=== PATIENT | female | born 1945 | race Caucasian/White ===

== ENCOUNTER 2019-08-31 10:19 | Outpatient (CLI) | payer MEDICARE, SELFPAY ==
[2019-08-31 12:58] LABS: Anion Gap 12.3 mmol/L (3-11); BUN 19 mg/dL (7-18); CO2 24.7 mmol/L (21.0-32.0); CREATININE 0.68 mg/dL (0.55-1.02); Calcium 9.3 mg/dL (8.5-10.1); Chloride 97 mmol/L (98-107); Glucose 109 mg/dL (74-106); Potassium 4.3 mmol/L (3.5-5.1); Sodium 134 mmol/L (136-145)
[2019-08-31 13:43] LABS: Abs Immature Grans 0.03 k/cumm (0.0-0.09); Absolute Eosinophil Count 0.11 k/cumm (0.0-0.7); Absolute Lymphocyte Count 1.52 k/cumm (1.2-3.4); Absolute Monocyte Count 0.86 k/cumm (0.11-0.7); Basophils % 0.2; Eosinophils % 0.9; HCT 41.3 % (36.0-46.0); HGB 13.6 g/dL (12.0-15.5); Immature Grans % 0.2 %; Lymphocytes % 12.6; Mean Corp. HGB Concentration 32.9 g/dL (32.0-36.0); Mean Corpuscular Hemoglobin 29.6 pg (27.0-33.0); Mean Corpuscular Volume 89.8 fL (80-95); Mean Platelet Volume 10.8 fL (8.0-11.0); Monocytes % 7.1; Platelet Count 350 x1000/uL (130-400); RBC Distribution Width 12.7 % (11.7-14.6)
[2019-08-31 13:59] LABS: Absolute Basophil Count 0.02 k/cumm (0.0-0.2); Absolute Neutrophil Count 9.56 k/cumm (1.2-6.7)
[2019-08-31 14:00] LABS: Hemoglobin A1C 6.9 % (3.8-5.6)
== END 2019-08-31 10:39 ==
PROVIDERS: PCP Nurse Practitioner Acute Care; Visit Provider Nurse Practitioner Adult Health
DX: E11.9 Type 2 diabetes mellitus without complications (principal); E78.5 Hyperlipidemia, unspecified; I70.213 Atherosclerosis of native arteries of extremities with intermittent claudication, bilateral legs; I73.9 Peripheral vascular disease, unspecified; Z79.01 Long term (current) use of anticoagulants
CPT/HCPCS: 36415; 80048; 83036; 85025

== ENCOUNTER 2019-10-26 16:10 | Outpatient (REF) | payer MEDICARE, MEDICAID, SELFPAY ==
[2019-10-27 13:27] LABS: COVID-19 RT-PCR UVMMC Result Negative (Negative)
== END 2019-10-26 16:30 ==
LOC: LBN 16:10
PROVIDERS: PCP Nurse Practitioner Acute Care; Visit Provider Nurse Practitioner Adult Health
DX: Z20.828 Contact with and (suspected) exposure to other viral communicable diseases (principal)
CPT/HCPCS: U0003

== ENCOUNTER 2020-01-27 22:20 | Outpatient (REF) | payer MEDICARE, MEDICAID, SELFPAY ==
[2020-01-27 16:43] LABS: Bilirubin Negative (Negative); Blood Trace-intact (Negative); Clarity Cloudy (Clear); Glucose 500 mg/dL (Negative); Ketones Negative (Negative); Leukocyte Esterase Small (Negative); Nitrite Positive (Negative); Specific Gravity 1.015 (1.005-1.025); Urobilinogen 0.2 EU/dL (Up TO 0.2); pH 5.5 (5-8)
[2020-01-27 16:45] LABS: C & S Indicated? C&S Done As Ordered
[2020-01-27 16:50] LABS: WBC >50 HPF (0-5)
[2020-01-27 16:51] LABS: Bacteria Many HPF (Negative); Casts Negative LPF (Negative); Crystals Negative HPF (Negative); Epithelial Cells Many HPF (Negative); Mucus Negative (Negative)
== END 2020-01-27 22:40 ==
LOC: LBN 22:20
PROVIDERS: PCP Nurse Practitioner Acute Care; Visit Provider Family Medicine
DX: R82.998 Other abnormal findings in urine (principal); R41.0 Disorientation, unspecified
CPT/HCPCS: 87077; 81003; 81015; 87086; 87186

== ENCOUNTER 2020-01-28 04:43 | Emergency (ER) | payer MEDICARE, MEDICAID, SELFPAY ==
--- NOTE | 2020-01-28 04:44 | W.ED.GENAD ---
Discharge Plan Disposition Patient Disposition: SNF (LEVEL 1) [facility] Condition: Good Discharge Details Chief Complaint: HeadInjury Clinical Impression: Head injury, closed, without LOC, Fall at correction Primary Care Provider: Tanner Zhu ED Provider: [place] Meds and New Rx's Prescriptions: Continued atorvastatin 40 mg Tablet 40 mg PO DAILY RF: 0 acetaminophen 325 mg Tablet 650 mg PO Q4H PRN PRNRF: 0 trazodone 50 mg Tablet 50 mg PO DAILY RF: 0 naltrexone 50 mg Tablet 50 mg PO DAILY RF: 0 triamcinolone acetonide 0.1 % Cream 1 applic TOPICAL BID RF: 0 magnesium hydroxide [Milk of Magnesia] 400 mg/5 mL Suspension 30 ml PO HS PRNRF: 0 bisacodyl [Dulcolax (bisacodyl)] 10 mg Suppository 10 mg VT DAILY PRNRF: 0 metformin 1,000 mg Tablet 2,000 mg PO DAILY RF: 0 Fleet Enema 19-7 gram/118 mL Enema 118 ml VT DAILY PRNRF: 0 levothyroxine [Synthroid] 200 mcg Tablet 200 mcg PO DAILY RF: 0 nystatin 100,000 unit/gram Powder 1 applic TOPICAL BID RF: 0 losartan 100 mg Tablet 100 mg PO DAILY RF: 0 Jardiance 25 mg Tablet 25 mg PO DAILY RF: 0 vitamin B complex Tablet 1 tab PO DAILY RF: 0 albuterol sulfate [Ventolin HFA] 90 mcg/actuation Hfa Aerosol Inhaler 2 puff INHALATION Q4H PRN PRNRF: 0 solifenacin [Vesicare] 5 mg Tablet 10 mg PO DAILY RF: 0 cholecalciferol (vitamin D3) [Vitamin D3] 50 mcg (2,000 unit) Tablet 2,000 unit PO DAILY RF: 0 Xarelto 20 mg Tablet 20 mg PO DAILY RF: 0 Discharge Instructions Additional Instructions: CT scan of head and cervical spine negative for traumatic injury. Resume previous medical care. Return to ED for mental status changes, worsening severe headache, persistent vomiting, neurologic changes. Medical Decision Making Patient here status post fall striking head on toilet. Neurologically intact. Minimal midline posterior neck tenderness. No obvious deformities or tenderness involving extremities. Will obtain head and cervical spine CT scan. No further imaging or laboratory studies indicated at this time. 06:00 - Head in cervical spine CT scan negative acute traumatic injury. Patient to be returned to [facility] to resume previous medical care. HPI General Mode of arrival: EMS. Date/Time Provider Initiated Documentation: 01/28/20 04:44. Limitations to Documentation: no limitations. Information obtained by: patient, EMS, RN notes reviewed and old records reviewed. HPI Narrative: Patient transferred over from ECF for evaluation after fall. Patient was trying to transfer from wheelchair to toilet. She slipped and struck her head on the toilet. She is on Xarelto. She had no loss of consciousness. She does complain of some head and neck pain. No neurologic changes. No nausea vomiting. No new extremity pain or discomfort other than baseline. No back pain. Related Data Home Medications Medication Instructions Recorded Confirmed Fleet Enema 118 ml VT DAILY PRN 01/28/20 01/28/20 Jardiance 25 mg PO DAILY 01/28/20 01/28/20 Xarelto 20 mg PO DAILY 01/28/20 01/28/20 acetaminophen 650 mg PO Q4H PRN PRN 01/28/20 01/28/20 albuterol sulfate [Ventolin HFA] 2 puff INHALATION Q4H PRN PRN 01/28/20 01/28/20 atorvastatin 40 mg PO DAILY 01/28/20 01/28/20 bisacodyl [Dulcolax (bisacodyl)] 10 mg VT DAILY PRN 01/28/20 01/28/20 cholecalciferol (vitamin D3) 2,000 unit PO DAILY 01/28/20 01/28/20 [Vitamin D3] levothyroxine [Synthroid] 200 mcg PO DAILY 01/28/20 01/28/20 losartan 100 mg PO DAILY 01/28/20 01/28/20 magnesium hydroxide [Milk of 30 ml PO HS PRN 01/28/20 01/28/20 Magnesia] metformin 2,000 mg PO DAILY 01/28/20 01/28/20 naltrexone 50 mg PO DAILY 01/28/20 01/28/20 nystatin 1 applic TOPICAL BID 01/28/20 01/28/20 solifenacin [Vesicare] 10 mg PO DAILY 01/28/20 01/28/20 trazodone 50 mg PO DAILY 01/28/20 01/28/20 triamcinolone acetonide 1 applic TOPICAL BID 01/28/20 01/28/20 vitamin B complex 1 tab PO DAILY 01/28/20 01/28/20 Allergies Allergy/AdvReac Type Severity Reaction Status Date / Time MACHELLE Inhibitors Allergy Unverified 01/28/20 04:54 levothyroxine Allergy Unverified 01/28/20 04:54 lisinopril Allergy Unverified 01/28/20 04:54 Review of Systems Narrative: As documented in HPI otherwise negative as below. Const: no fever, chills, weakness Resp: no cough, SOB, pleuritic pain CV: no CP, diaphoresis, edema, syncope GI: no abdominal pain, nausea, vomiting, diarrhea Neuro: no numbness, focal weakness, confusion PFSH Medical History Asthma (Chronic) Bipolar disorder (Chronic) CHF (congestive heart failure) (Chronic) Diabetes mellitus (Chronic) DVT (deep venous thrombosis) (Chronic) HTN (hypertension) (Chronic) Hypercholesterolemia (Chronic) Hypothyroid (Chronic) PVD (peripheral vascular disease) (Chronic) Social History Smoking/Tobacco Use Status: Never Alcohol Intake: former Drug use: Never Do you feel safe at home: Yes Do you feel safe in your relationship?: Yes Exam Narrative Exam Narrative: Vitals: Afebrile. Elevated systolic pressure otherwise normal vitals and normal room air pulse ox. Const: Obese, elderly female in NAD. HEENT: NC/AT. Normal facial exam. No lacerations or abrasions. Neck: Minimal midline tenderness. Lungs: Normal respiratory effort. No chest wall tenderness. Cor: RRR with good radial pulses. GI: Soft. NT/ND. No guarding or rebound. Neuro: A+O x 3. Normal speech, mentation. Cranial nerves II - XII grossly intact. No gross motor or sensory deficit. Ext: No deformity or tenderness. Contractures of lower extremities and unable to get legs extended.
[2020-01-28 04:45] VITALS: BP 154/73; PULSE 82; RESP 20; TEMP 37.1; O2SAT 100
--- NOTE | 2020-01-28 05:11 | DI.CT_ITS ---
EXAM: CT HEAD CERVICAL SPINE WO CLINICAL HISTORY: fall/trauma. TECHNIQUE: Imaging Protocol: Axial computed tomography images with coronal and sagittal reformatted images were created and reviewed COMPARISON: No exams were available for comparison FINDINGS: CT Head: Ventricles and Extra axial spaces: Normal in size and morphology for the patient's age. Hemorrhage: None. Cerebral parenchyma: There are areas of decreased attenuation in the white matter most consistent wit h chronic microvascular ischemic disease. Midline shift: None. Brainstem/Cerebellum: Normal. Calvarium: Normal. Visualized Paranasal sinuses/Mastoids: Chronic maxillary sinusitis. The remaining visualized paranas al sinuses are clear. The mastoid air cells are well pneumatized. Soft Tissues: Unremarkable. CT Cervical Spine: Bones: No acute fracture or subluxation. There is a chronic left convex scoliosis and reversal of the normal cervical lordosis. Multilevel degenerative changes are seen throughout the cervical spine re sulting in multilevel neural foraminal narrowing and central spinal canal stenosis. Soft Tissues: Unremarkable. Lung Apices: Chronic apical changes. No acute abnormality. IMPRESSION: 1. No acute intracranial process. 2. No acute fracture or subluxation in the cervical spine. RADIATION DOSE DELIVERED: 1,727.86mGy.cm Total DLP DATA REPOSITORY: All CT scans at this facility are submitted to the National Radiology Data Registry (NRDR) Dose Index Registry (DIR) with the [employer] (ACR). RADIATION OPTIMIZATION: All CT scans at this facility use at least one of these dose optimization te chniques: automated exposure control; mA and/or kV adjustment per patient size (includes targeted exa ms where dose is matched to clinical indication); or iterative reconstruction.
--- NOTE | 2020-01-28 05:56 | DI.VRAD_ITS ---
PROCEDURE INFORMATION: Exam: CT Head Without Contrast Exam date and time: 01/28/2020 4:52 AM Age: 74 years old Clinical indication: Injury or trauma; Fall; Initial encounter; Blunt trauma (contusions or hematomas); Without loss of consciousness; Injury date: 01/28/20; Injury details: PT fell at home transferring from bed. PT states her neck and head are always tilted to the left, unable to straighten it out. Pain on left frontal aspect of the forehead TECHNIQUE: Imaging protocol: Computed tomography of the head without contrast. Radiation optimization: All CT scans at this facility use at least one of these dose optimization techniques: automated exposure control; mA and/or kV adjustment per patient size (includes targeted exams where dose is matched to clinical indication); or iterative reconstruction. COMPARISON: No relevant prior studies available. FINDINGS: Brain: Decreased periventricular and subcortical attenuation compatible with mild chronic white matter ischemic change. No acute cerebrovascular accident. No acute intracranial hemorrhage. Remote lacunar infarct right thalamus. Ventricles: Prominent ventricles and sulci compatible with mild volume loss/atrophy. Bones/joints: No linear or depressed skull fractures. Sinuses: Chronic maxillary sinus disease, right greater than left. No acute sinusitis. Mastoid air cells: Mastoid air cells are unremarkable as demonstrated. Vasculature: Atherosclerotic calcification intracranial vasculature without aneurysm. Soft tissues: Minimal frontal soft tissue swelling/edema. No significant scalp hematoma. IMPRESSION: 1. No acute intracranial abnormalities. 2. Atrophy with chronic ischemic changes as described. PROCEDURE INFORMATION: Exam: CT Cervical Spine Without Contrast Exam date and time: 01/28/2020 4:52 AM Age: 74 years old Clinical indication: Injury or trauma; Fall; Initial encounter; Blunt trauma (contusions or hematomas); Without loss of consciousness; Injury date: 01/28/20; Injury details: PT fell at home transferring from bed. PT states her neck and head are always tilted to the left, unable to straighten it out. Pain on left frontal aspect of the forehead TECHNIQUE: Imaging protocol: Computed tomography images of the cervical spine without contrast. Radiation optimization: All CT scans at this facility use at least one of these dose optimization techniques: automated exposure control; mA and/or kV adjustment per patient size (includes targeted exams where dose is matched to clinical indication); or iterative reconstruction. COMPARISON: No relevant prior studies available. FINDINGS: Vertebrae: No acute fracture or posttraumatic subluxation. Levoconvex curvature with reversal of normal cervical lordosis, likely longstanding and degenerative. Arthritic change articulation anterior arch of C1 and dens of C2 without significant central stenosis. No basilar invagination. Generalized osteopenia. C2-C3: Disc degeneration with disc bulging. No central stenosis. Hypertrophic facets with right neural foraminal narrowing. Minimal degenerative anterolisthesis. C3-C4: Advanced disc degeneration with disc osteophyte complex. Minor central stenosis. Hypertrophic facets with neural foraminal narrowing, right greater than left. C4-C5: Disc degeneration with disc bulging. No central stenosis. Hypertrophic facets with right neural foraminal narrowing. Minimal degenerative anterolisthesis. C5-C6: Advanced disc degeneration with disc osteophyte complex causing [id number] stenosis. Hypertrophic facets with bilateral neural foraminal narrowing. C6-C7: Advanced disc degeneration with disc osteophyte complex with mild central stenosis. No significant neural foraminal narrowing. C7-T1: Disc degeneration with no significant central stenosis. Hypertrophic facets with mild neural foraminal narrowing. Degenerative anterolisthesis. Soft tissues: Unremarkable. Vasculature: Carotid artery calcifications and tortuosity. Lungs: Chronic apical pleural and parenchymal changes IMPRESSION: 1. No acute fracture or posttraumatic subluxation. 2. Advanced degenerative and postural changes as described. Dictated and Authenticated by: Rhys Gracia MD. Ordering:BEENA Delarosa MD
[2020-01-28 06:21] VITALS: BP 135/72; PULSE 85; RESP 20; O2SAT 96
== END 2020-01-28 06:36 | disposition skilled nursing facility (03) ==
PROVIDERS: Emergency Provider Emergency Medicine; PCP Nurse Practitioner Acute Care
DX: S09.90XA Unspecified injury of head, initial encounter (principal); W18.11XA Fall from or off toilet without subsequent striking against object, initial encounter; Y92.121 Bathroom in nursing home as the place of occurrence of the external cause; Z79.01 Long term (current) use of anticoagulants; Z86.718 Personal history of other venous thrombosis and embolism; E11.9 Type 2 diabetes mellitus without complications; I10 Essential (primary) hypertension
CPT/HCPCS: 99284; 70450; 72125

== ENCOUNTER 2020-02-04 11:55 | Outpatient (REF) | payer MEDICAID, SELFPAY ==
[2020-02-05 15:36] LABS: COVID-19 RT-PCR Result Not Detected ((See Note))
== END 2020-02-04 12:15 ==
LOC: LBN 11:55
PROVIDERS: PCP Nurse Practitioner Acute Care; Visit Provider Nurse Practitioner Adult Health
DX: Z11.59 Encounter for screening for other viral diseases (principal)
CPT/HCPCS: U0003

== ENCOUNTER 2020-02-10 10:07 | Outpatient (REF) | payer SELFPAY ==
[2020-02-11 17:37] LABS: COVID-19 RT-PCR Result Not Detected ((See Note))
== END 2020-02-10 10:27 ==
LOC: LBN 10:07
PROVIDERS: PCP Nurse Practitioner Acute Care; Visit Provider Nurse Practitioner Adult Health
DX: Z11.59 Encounter for screening for other viral diseases (principal)
CPT/HCPCS: U0003

== ENCOUNTER 2020-03-14 20:12 | Outpatient (REF) | payer MEDICAID, SELFPAY ==
[2020-03-14 20:19] LABS: Abs Immature Grans 0.03 10^3/uL (0.0-0.06); Absolute Basophil Count 0.05 10^3/uL (0.0-0.2); Absolute Eosinophil Count 0.23 10^3/uL (0.0-0.7); Absolute Monocyte Count 0.99 10^3/uL (0.1-0.8); Absolute Neutrophil Count 8.67 10^3/uL (1.2-6.7); Basophils % 0.4; Eosinophils % 1.9; HCT 40.5 % (36.0-46.0); HGB 13.1 g/dL (11.2-15.7); Immature Grans % 0.3; Lymphocytes % 16.7; MCH 28.8 pg (27.0-33.0); MCHC 32.3 % (32.0-36.0); MPV 9.8 fL (8.0-11.0); Monocytes % 8.3; Neutrophils % 72.4; Nucleated RBC 0 %; Platelet Count 314 10^3/uL (130-400); RBC 4.55 10^6/uL (3.93-5.22); RDW 12.5 % (11.7-14.6); RDW-SD 40.4 fL; WBC 11.97 10^3/uL (4.4-10.8)
[2020-03-14 20:37] LABS: ALT 24 U/L (14-59); AST 10 U/L (15-37); Albumin 3.6 g/dL (3.4-5.0); Alkaline Phosphatase 107 U/L (46-116); Anion Gap 6.5 mmol/L (3-11); BUN 11 mg/dL (7-18); Bilirubin, Total 0.4 mg/dL (0.2-1.0); CO2 29.5 mmol/L (21.0-32.0); CREATININE 0.68 mg/dL (0.55-1.02); Calcium 9.4 mg/dL (8.5-10.1); Chloride 96 mmol/L (98-107); Glucose 96 mg/dL (74-106); Potassium 4.8 mmol/L (3.5-5.1); Sodium 132 mmol/L (136-145); TSH 0.01 uIU/mL (0.36-3.74)
== END 2020-03-14 20:32 ==
LOC: LBN 20:12
PROVIDERS: PCP Nurse Practitioner Acute Care; Visit Provider Nurse Practitioner Adult Health
DX: E11.9 Type 2 diabetes mellitus without complications (principal); E03.9 Hypothyroidism, unspecified; E78.5 Hyperlipidemia, unspecified; M62.81 Muscle weakness (generalized)
CPT/HCPCS: 80053; 83036; 84443; 85025

== ENCOUNTER 2020-04-12 10:29 | Outpatient (REF) | payer MEDICAID, SELFPAY ==
[2020-04-12 11:36] LABS: ALT 21 U/L (14-59); AST 18 U/L (15-37); Albumin 3.6 g/dL (3.4-5.0); Alkaline Phosphatase 114 U/L (46-116); Anion Gap 8.6 mmol/L (3-11); BUN 11 mg/dL (7-18); Bilirubin, Total 0.5 mg/dL (0.2-1.0); CO2 25.4 mmol/L (21.0-32.0); CREATININE 0.69 mg/dL (0.55-1.02); Calcium 9.4 mg/dL (8.5-10.1); Chloride 96 mmol/L (98-107); Glucose 145 mg/dL (74-106); Potassium 4.5 mmol/L (3.5-5.1); Sodium 130 mmol/L (136-145); TSH 0.86 uIU/mL (0.36-3.74); Total Protein 7.1 g/dL (6.4-8.2)
== END 2020-04-12 10:49 ==
LOC: LBN 10:29
PROVIDERS: PCP Nurse Practitioner Acute Care; Visit Provider Nurse Practitioner Adult Health
DX: M62.81 Muscle weakness (generalized) (principal); E78.5 Hyperlipidemia, unspecified
CPT/HCPCS: 80053; 84443

== ENCOUNTER 2020-05-30 20:10 | Outpatient (REF) | payer MEDICAID, SELFPAY | END 2020-05-30 20:30 | LOC: LBN 20:10 | PROVIDERS: PCP Nurse Practitioner Acute Care; Visit Provider Nurse Practitioner Adult Health | DX: N39.0 Urinary tract infection, site not specified (principal) | CPT/HCPCS: 87077; 87086; 87186 ==

== ENCOUNTER 2020-05-31 11:27 | Outpatient (REF) | payer MEDICAID, SELFPAY ==
[2020-05-31 12:30] LABS: Bilirubin Negative (Negative); Blood Small (Negative); Clarity Cloudy (Clear); Glucose 500 mg/dL (Negative); Ketones Negative (Negative); Leukocyte Esterase Moderate (Negative); Nitrite Positive (Negative); Specific Gravity 1.025 (1.005-1.025); Urobilinogen 0.2 EU/dL (Up TO 0.2); pH 5.5 (5-8)
[2020-05-31 12:38] LABS: WBC >50 HPF (0-5)
[2020-05-31 12:39] LABS: Epithelial Cells Many HPF (Negative)
[2020-05-31 12:40] LABS: Bacteria Packed HPF (Negative); C & S Indicated? No/Sq. Contamination
== END 2020-05-31 11:47 ==
LOC: LBN 11:27
PROVIDERS: PCP Nurse Practitioner Acute Care; Visit Provider Family Medicine
DX: N39.0 Urinary tract infection, site not specified (principal)
CPT/HCPCS: 81003; 81015

== ENCOUNTER 2020-06-22 17:34 | Outpatient (REF) | payer MEDICAID, MEDICARE, SELFPAY ==
[2020-06-22 18:27] LABS: HCT 40.2 % (36.0-46.0); HGB 13.2 g/dL (11.2-15.7); MCH 30.1 pg (27.0-33.0); MCHC 32.8 % (32.0-36.0); MCV 91.8 fL (80-95); MPV 10.1 fL (8.0-11.0); Platelet Count 298 10^3/uL (130-400); RBC 4.38 10^6/uL (3.93-5.22); RDW 13.2 % (11.7-14.6); RDW-SD 44.7 fL; WBC 12.37 10^3/uL (4.4-10.8)
[2020-06-22 18:51] LABS: ALT 29 U/L (14-59); AST 18 U/L (15-37); Albumin 3.9 g/dL (3.4-5.0); Alkaline Phosphatase 101 U/L (46-116); Anion Gap 9.2 mmol/L (3-11); BUN 23 mg/dL (7-18); Bilirubin, Total 0.4 mg/dL (0.2-1.0); CO2 26.8 mmol/L (21.0-32.0); CREATININE 0.77 mg/dL (0.55-1.02); Calcium 9.4 mg/dL (8.5-10.1); Chloride 98 mmol/L (98-107); Glucose 110 mg/dL (74-106); Potassium 4.6 mmol/L (3.5-5.1); Sodium 134 mmol/L (136-145); TSH 2.59 uIU/mL (0.36-3.74); Total Protein 7.1 g/dL (6.4-8.2)
== END 2020-06-22 17:54 ==
LOC: LBN 17:34
PROVIDERS: PCP Nurse Practitioner Acute Care; Visit Provider Nurse Practitioner Adult Health
DX: E11.9 Type 2 diabetes mellitus without complications (principal); E03.9 Hypothyroidism, unspecified
CPT/HCPCS: 80053; 85027; 83036; 84443

== ENCOUNTER 2020-06-25 16:18 | Outpatient (REF) | payer MEDICAID, MEDICARE, SELFPAY ==
[2020-06-25 17:03] LABS: Bilirubin Negative (Negative); Blood Moderate (Negative); Clarity Clear (Clear); Glucose >=1000 mg/dL (Negative); Ketones Negative (Negative); Leukocyte Esterase Small (Negative); Nitrite Negative (Negative); Urobilinogen 0.2 EU/dL (Up TO 0.2); pH 6.5 (5-8)
[2020-06-25 17:08] LABS: C & S Indicated? C&S Done As Ordered
[2020-06-25 18:13] LABS: Bacteria Moderate HPF (Negative); Casts Negative LPF (Negative); Crystals Negative HPF (Negative); Mucus Negative (Negative)
[2020-06-25 18:14] LABS: Epithelial Cells Moderate HPF (Negative)
== END 2020-06-25 16:38 ==
LOC: LBN 16:18
PROVIDERS: PCP Nurse Practitioner Acute Care; Visit Provider Family Medicine
DX: N39.0 Urinary tract infection, site not specified (principal)
CPT/HCPCS: 81003; 81015; 87086

== ENCOUNTER 2020-07-06 08:09 | Outpatient (REF) | payer MEDICAID, SELFPAY ==
[2020-07-06 10:23] LABS: Abs Immature Grans 0.04 10^3/uL (0.0-0.06); Absolute Basophil Count 0.07 10^3/uL (0.0-0.2); Absolute Eosinophil Count 0.52 10^3/uL (0.0-0.7); Absolute Lymphocyte Count 2.36 10^3/uL (1.2-3.4); Absolute Monocyte Count 0.82 10^3/uL (0.1-0.8); Absolute Neutrophil Count 8.11 10^3/uL (1.2-6.7); Basophils % 0.6; Eosinophils % 4.4; HCT 45.5 % (36.0-46.0); HGB 15.2 g/dL (11.2-15.7); Immature Grans % 0.3; Lymphocytes % 19.8; MCH 30.3 pg (27.0-33.0); MCHC 33.4 % (32.0-36.0); MCV 90.8 fL (80-95); MPV 10.2 fL (8.0-11.0); Monocytes % 6.9; Nucleated RBC 0 %; Platelet Count 291 10^3/uL (130-400); RBC 5.01 10^6/uL (3.93-5.22); RDW 12.6 % (11.7-14.6); RDW-SD 41.5 fL; WBC 11.92 10^3/uL (4.4-10.8)
[2020-07-06 10:41] LABS: Anion Gap 6.1 mmol/L (3-11); BUN 17 mg/dL (7-18); CO2 27.9 mmol/L (21.0-32.0); CREATININE 0.86 mg/dL (0.55-1.02); Calcium 9.4 mg/dL (8.5-10.1); Chloride 100 mmol/L (98-107); Glucose 104 mg/dL (74-106); NT-proBNP 86 pg/mL (<300); Potassium 4.6 mmol/L (3.5-5.1); Sodium 134 mmol/L (136-145)
== END 2020-07-06 08:29 ==
LOC: LBN 08:09
PROVIDERS: PCP Nurse Practitioner Acute Care; Visit Provider Nurse Practitioner Adult Health
DX: E11.9 Type 2 diabetes mellitus without complications (principal); E78.5 Hyperlipidemia, unspecified
CPT/HCPCS: 80048; 83880; 85025

== ENCOUNTER 2020-08-25 20:47 | Outpatient (REF) | payer MEDICAID, SELFPAY | END 2020-08-25 20:48 | disposition home or self-care (01) | LOC: LBN 20:47 | PROVIDERS: PCP Nurse Practitioner Acute Care; Visit Provider Nurse Practitioner Adult Health | DX: E03.9 Hypothyroidism, unspecified (principal) | CPT/HCPCS: 84443 ==

== ENCOUNTER 2020-10-06 16:41 | Outpatient (REF) | payer MEDICAID, SELFPAY ==
[2020-10-06 18:24] LABS: TSH 1.84 uIU/mL (0.36-3.74)
== END 2020-10-06 16:42 | disposition home or self-care (01) ==
LOC: LBN 16:41
PROVIDERS: Family Medicine; PCP Nurse Practitioner Acute Care; Visit Provider Nurse Practitioner Adult Health
DX: E03.9 Hypothyroidism, unspecified (principal)
CPT/HCPCS: 84443

== ENCOUNTER 2021-01-24 17:48 | Outpatient (REF) | payer MEDICAID, SELFPAY ==
[2021-01-24 19:21] LABS: Hemoglobin A1C 10.7 % (<5.7)
== END 2021-01-24 17:49 | disposition home or self-care (01) ==
LOC: LBN 17:48
PROVIDERS: PCP Nurse Practitioner Acute Care; Visit Provider Nurse Practitioner Family
DX: E11.9 Type 2 diabetes mellitus without complications (principal)
CPT/HCPCS: 83036

== ENCOUNTER 2021-02-23 22:41 | Outpatient (REF) | payer SELFPAY ==
[2021-02-24 08:27] LABS: Source Nasal/Nares
[2021-02-24 10:13] LABS: COVID-19 PCR Negative (Negative)
== END 2021-02-23 22:42 | disposition home or self-care (01) ==
LOC: LBN 22:41
PROVIDERS: PCP Nurse Practitioner Acute Care; Visit Provider Ophthalmology
DX: Z20.822 Contact with and (suspected) exposure to COVID-19 (principal); Z01.818 Encounter for other preprocedural examination
CPT/HCPCS: 87635

== ENCOUNTER 2021-02-27 00:22 | Outpatient (REF) | payer SELFPAY ==
[2021-02-27 00:59] LABS: ALT 28 U/L (14-59); AST 12 U/L (15-37); Albumin 3.2 g/dL (3.4-5.0); Alkaline Phosphatase 111 U/L (46-116); Anion Gap 2.3 mmol/L (3-11); BUN 15 mg/dL (7-18); Bilirubin, Total 0.3 mg/dL (0.2-1.0); CO2 32.7 mmol/L (21.0-32.0); Calcium 8.9 mg/dL (8.5-10.1); Chloride 95 mmol/L (98-107); Estimated GFR 53.91 (mL/min/1.73m2); Glucose 270 mg/dL (74-106); NT-proBNP 43 pg/mL (<300); Potassium 4.6 mmol/L (3.5-5.1); Sodium 130 mmol/L (136-145); Total Protein 7.1 g/dL (6.4-8.2)
[2021-02-27 23:01] LABS: Abs Immature Grans 0.05 10^3/uL (0.0-0.06); Absolute Basophil Count 0.04 10^3/uL (0.0-0.2); Absolute Eosinophil Count 0.21 10^3/uL (0.0-0.7); Absolute Lymphocyte Count 1.59 10^3/uL (1.2-3.4); Absolute Monocyte Count 1.17 10^3/uL (0.1-0.8); Basophils % 0.3; Eosinophils % 1.8; HCT 35.8 % (36.0-46.0); HGB 11.7 g/dL (11.2-15.7); Immature Grans % 0.4; Lymphocytes % 13.5; MCH 29.8 pg (27.0-33.0); MCHC 32.7 % (32.0-36.0); MCV 91.1 fL (80-95); MPV 9.8 fL (8.0-11.0); Monocytes % 9.9; Neutrophils % 74.1; Nucleated RBC 0 %; Platelet Count 232 10^3/uL (130-400); RBC 3.93 10^6/uL (3.93-5.22); RDW 13.3 % (11.7-14.6); RDW-SD 45.1 fL; WBC 11.78 10^3/uL (4.4-10.8)
[2021-02-27 23:05] LABS: Absolute Neutrophil Count 8.73 10^3/uL (1.2-6.7)
== END 2021-02-27 00:23 | disposition home or self-care (01) ==
LOC: LBN 00:22
PROVIDERS: Family Medicine; PCP Nurse Practitioner Acute Care; Visit Provider Nurse Practitioner Family
DX: E11.9 Type 2 diabetes mellitus without complications (principal); I50.32 Chronic diastolic (congestive) heart failure; J45.909 Unspecified asthma, uncomplicated
CPT/HCPCS: 80053; 83880; 85025

== ENCOUNTER 2021-03-05 16:28 | Outpatient (REF) | payer SELFPAY | END 2021-03-05 16:29 | disposition home or self-care (01) | LOC: LBN 16:28 | PROVIDERS: PCP Nurse Practitioner Acute Care; Visit Provider Family Medicine | DX: N31.9 Neuromuscular dysfunction of bladder, unspecified (principal) | CPT/HCPCS: 87077; 87086; 87186 ==

== ENCOUNTER 2021-03-08 13:17 | Outpatient (CLI) | payer MEDICARE, MEDICAID, SELFPAY ==
--- NOTE | 2021-03-08 | DI.RAD_ITS ---
Exam(s) XR CHEST 2V PA LATERAL EXAM: XR CHEST 2V PA LATERAL CLINICAL HISTORY: R05 COUGH. TECHNIQUE: 2D digital imaging was performed. COMPARISON: No exams were available for comparison FINDINGS: Cardiomegaly. Mediastinum not widened. No infiltrates nor pleural effusions. No pulmonary edema. No pneumothorax IMPRESSION: No acute pulmonary findings. Cardiomegaly. DATA REPOSITORY: RADIATION DOSE DELIVERED:
== END 2021-03-08 13:37 ==
PROVIDERS: PCP Nurse Practitioner Acute Care; Visit Provider Family Medicine
DX: R05 Cough (principal)
CPT/HCPCS: 71046

== ENCOUNTER 2021-04-01 07:32 | Outpatient (REF) | payer MEDICARE, MEDICAID, SELFPAY ==
[2021-04-01 08:25] LABS: Bilirubin Negative (Negative); Blood Moderate (Negative); Clarity Cloudy (Clear); Glucose Negative (Negative); Ketones Negative (Negative); Leukocyte Esterase Trace (Negative); Nitrite Positive (Negative); pH >= 9.0 (5-8)
[2021-04-01 08:40] LABS: Epithelial Cells Few HPF (Negative); RBC 20-50 HPF (0-2)
[2021-04-01 08:41] LABS: Bacteria Many HPF (Negative); C & S Indicated? C&S Done As Ordered; Casts 5-10 Hyaline LPF (Negative); Crystals Many Triple Phos HPF (Negative); Mucus Negative (Negative)
== END 2021-04-01 07:33 | disposition home or self-care (01) ==
LOC: LBN 07:32
PROVIDERS: PCP Nurse Practitioner Acute Care; Visit Provider Family Medicine
DX: N39.0 Urinary tract infection, site not specified (principal)
CPT/HCPCS: 87077; 81003; 81015; 87086; 87186

== ENCOUNTER 2021-04-30 14:39 | Outpatient (REF) | payer MEDICARE, MEDICAID, SELFPAY ==
[2021-04-30 17:48] LABS: HCT 35.2 % (36.0-46.0); HGB 11.3 g/dL (11.2-15.7); MCH 30.1 pg (27.0-33.0); MCHC 32.1 % (32.0-36.0); MCV 93.9 fL (80-95); MPV 10.1 fL (8.0-11.0); Platelet Count 288 10^3/uL (130-400); RBC 3.75 10^6/uL (3.93-5.22); RDW 13.8 % (11.7-14.6); RDW-SD 47.8 fL; WBC 13.65 10^3/uL (4.4-10.8)
[2021-04-30 18:10] LABS: ALT 26 U/L (14-59); AST 14 U/L (15-37); Albumin 3.5 g/dL (3.4-5.0); Alkaline Phosphatase 93 U/L (46-116); Anion Gap 9.9 mmol/L (3-11); BUN 24 mg/dL (7-18); Bilirubin, Total 0.4 mg/dL (0.2-1.0); CO2 29.1 mmol/L (21.0-32.0); CREATININE 0.8 mg/dL (0.55-1.02); Calcium 8.8 mg/dL (8.5-10.1); Chloride 99 mmol/L (98-107); Glucose 175 mg/dL (74-106); Potassium 4.2 mmol/L (3.5-5.1); Sodium 138 mmol/L (136-145); Total Protein 6.7 g/dL (6.4-8.2)
[2021-04-30 19:12] LABS: Hemoglobin A1C 7.6 % (<5.7)
[2021-04-30 23:00] LABS: Bilirubin Negative (Negative); Blood Large (Negative); Clarity Clear (Clear); Glucose Negative (Negative); Ketones Negative (Negative); Leukocyte Esterase Trace (Negative); Nitrite Positive (Negative); Specific Gravity 1.025 (1.005-1.025)
[2021-04-30 23:01] LABS: Bacteria Many HPF (Negative); C & S Indicated? C&S Done As Ordered; Casts Negative LPF (Negative); Crystals Negative HPF (Negative); Mucus Negative (Negative); RBC >50 HPF (0-2); WBC >50 HPF (0-5)
== END 2021-04-30 14:40 | disposition home or self-care (01) ==
LOC: LBN 14:39
PROVIDERS: PCP Nurse Practitioner Acute Care; Visit Provider Nurse Practitioner Family
DX: E11.40 Type 2 diabetes mellitus with diabetic neuropathy, unspecified (principal); N39.0 Urinary tract infection, site not specified
CPT/HCPCS: 80053; 85027; 87077; 81003; 81015; 83036; 87086; 87186

== ENCOUNTER 2021-05-24 00:38 | Outpatient (REF) | payer MEDICARE, MEDICAID, SELFPAY ==
[2021-05-24 03:24] LABS: Bilirubin Negative (Negative); Blood Large (Negative); Clarity Cloudy (Clear); Glucose Negative (Negative); Ketones Trace mg/dL (Negative); Leukocyte Esterase Small (Negative); Nitrite Positive (Negative); Specific Gravity >= 1.030 (1.005-1.025); pH 5.5 (5-8)
[2021-05-24 03:27] LABS: C & S Indicated? C&S Done As Ordered; RBC >50 HPF (0-2)
== END 2021-05-24 00:39 | disposition home or self-care (01) ==
LOC: LBN 00:38
PROVIDERS: PCP Nurse Practitioner Acute Care; Visit Provider Nurse Practitioner Family
DX: N39.0 Urinary tract infection, site not specified (principal)
CPT/HCPCS: 81003; 81015; 87086

== ENCOUNTER 2021-06-21 17:54 | Outpatient (REF) | payer MEDICAID, SELFPAY ==
[2021-06-21 12:46] LABS: Abs Immature Grans 0.05 10^3/uL (0.0-0.06); Absolute Basophil Count 0.08 10^3/uL (0.0-0.2); Absolute Eosinophil Count 0.26 10^3/uL (0.0-0.7); Basophils % 0.6; HCT 38.3 % (36.0-46.0); HGB 12.3 g/dL (11.2-15.7); Immature Grans % 0.4; Lymphocytes % 12.4; MCH 30.1 pg (27.0-33.0); MCHC 32.1 % (32.0-36.0); MCV 93.9 fL (80-95); MPV 10.4 fL (8.0-11.0); Monocytes % 5.6; Nucleated RBC 0 %; Platelet Count 330 10^3/uL (130-400); RBC 4.08 10^6/uL (3.93-5.22); RDW 13.2 % (11.7-14.6); RDW-SD 45.2 fL
[2021-06-21 12:50] LABS: Absolute Lymphocyte Count 1.62 10^3/uL (1.2-3.4); Absolute Monocyte Count 0.73 10^3/uL (0.1-0.8); Absolute Neutrophil Count 10.35 10^3/uL (1.2-6.7)
[2021-06-21 12:53] LABS: ALT 26 U/L (14-59); AST 16 U/L (15-37); Albumin 3.4 g/dL (3.4-5.0); Alkaline Phosphatase 96 U/L (46-116); Anion Gap 9.6 mmol/L (3-11); BUN 21 mg/dL (7-18); Bilirubin, Total 0.3 mg/dL (0.2-1.0); C-Reactive Protein 1.78 mg/dL (0.0-0.3); CO2 26.4 mmol/L (21.0-32.0); CREATININE 0.7 mg/dL (0.55-1.02); Calcium 9.3 mg/dL (8.5-10.1); Chloride 100 mmol/L (98-107); Glucose 191 mg/dL (74-106); Potassium 4.3 mmol/L (3.5-5.1); Sodium 136 mmol/L (136-145)
== END 2021-06-21 17:55 | disposition home or self-care (01) ==
LOC: LBN 17:54
PROVIDERS: PCP Nurse Practitioner Acute Care; Visit Provider Nurse Practitioner Family
DX: R31.9 Hematuria, unspecified (principal)
CPT/HCPCS: 80053; 85025; 86140

== ENCOUNTER 2021-07-15 14:45 | Outpatient (REF) | payer MEDICAID, SELFPAY ==
[2021-07-15 14:59] LABS: Abs Immature Grans 0.22 10^3/uL (0.0-0.06); HCT 36.4 % (36.0-46.0); HGB 12.1 g/dL (11.2-15.7); MCH 29.9 pg (27.0-33.0); MCHC 33.2 % (32.0-36.0); MCV 89.9 fL (80-95); MPV 9.5 fL (8.0-11.0); Nucleated RBC 0 %; Platelet Count 356 10^3/uL (130-400); RBC 4.05 10^6/uL (3.93-5.22); RDW 12.6 % (11.7-14.6); RDW-SD 41.9 fL
[2021-07-15 15:21] LABS: ALT 35 U/L (14-59); AST 29 U/L (15-37); Albumin 3.1 g/dL (3.4-5.0); Alkaline Phosphatase 92 U/L (46-116); Anion Gap 9.2 mmol/L (3-11); BUN 24 mg/dL (7-18); Bilirubin, Total 0.5 mg/dL (0.2-1.0); CO2 26.8 mmol/L (21.0-32.0); CREATININE 1.5 mg/dL (0.55-1.02); Chloride 95 mmol/L (98-107); Estimated GFR 33.76 (mL/min/1.73m2); Glucose 136 mg/dL (74-106); Potassium 4.1 mmol/L (3.5-5.1); Sodium 131 mmol/L (136-145); Total Protein 7.2 g/dL (6.4-8.2)
[2021-07-15 15:24] LABS: Absolute Lymphocyte Count 0.31 10^3/uL (1.2-3.4)
[2021-07-15 15:25] LABS: Absolute Monocyte Count 1.25 10^3/uL (0.1-0.8); Absolute Neutrophil Count 29.64 10^3/uL (1.2-6.7); Bands % 10; Diff Comment Manual Differential; RBC Morphology Normal
== END 2021-07-15 14:46 | disposition home or self-care (01) ==
LOC: LBN 14:45
PROVIDERS: PCP Nurse Practitioner Acute Care; Visit Provider Nurse Practitioner Family
DX: E11.9 Type 2 diabetes mellitus without complications (principal); I50.32 Chronic diastolic (congestive) heart failure
CPT/HCPCS: 80053; 85025

== ENCOUNTER 2021-07-15 16:17 | Emergency (ER) | payer MEDICAID, SELFPAY ==
[2021-07-15] VITALS (52 sets, daily range): BP systolic 111–174; BP diastolic 44–87; PULSE 90–145; RESP 13–25; TEMP 36–36.1; O2SAT 84–100
--- NOTE | 2021-07-15 16:30 | RT.EKG_ITS ---
APPROVED REPORT Exam: Resting ECG Reason for Exam: ams Patient Location: E HR:106 bpm ECG Measurements Heart Rate 106 AXIS MS 214 P 59 QRSd 84 QRS -25 QT 303 T 110 QTc 402 Conclusion Sinus tachycardia. PVCs Borderline prolonged MS interval...MS >207, V-rate 91-120 Inferior infarct, old...Q >35mS, II III aVF Probable anterolateral infarct, age indeterm...Q >35mS, T neg, V2-V6,I,aVL
--- NOTE | 2021-07-15 16:30 | DI.RAD_ITS ---
Exam(s) XR PORTABLE CHEST AP EXAM: XR PORTABLE CHEST AP CLINICAL HISTORY: shortness of breath TECHNIQUE: 2D digital imaging was performed. COMPARISON: CR XR CHEST 2V PA LATERAL from 03/08/2021 FINDINGS: The heart is enlarged, unchanged. The aorta is calcified but normal in diameter. There is mild resp iratory motion. No area consolidation, effusion or pneumothorax. There is chronic apical pleural th ickening. IMPRESSION: Cardiomegaly. No acute pulmonary findings. DATA REPOSITORY: RADIATION DOSE DELIVERED:
--- NOTE | 2021-07-15 16:30 | DI.CT_ITS ---
Exam(s) CT HEAD WO EXAM: CT HEAD WO CLINICAL HISTORY: ams. TECHNIQUE: Imaging Protocol: Axial computed tomography images with coronal and sagittal reformatted images were created and reviewed COMPARISON: CT CT HEAD CERVICAL SPINE WO from 01/28/2020 FINDINGS: There is mild atrophy greater greatest in the frontotemporal regions. There are white matter changes consistent with chronic microvascular ischemia. No acute infarct, hemorrhage or mass is seen. Ther e is no evidence of skull fracture. The mastoid air cells are clear. There is some mucous retention in the right maxillary sinus and minimal mucosal thickening at the floor of the left maxillary sinus . The orbits are unremarkable. IMPRESSION: No acute intracranial process. RADIATION DOSE DELIVERED: 932.17mGy.cm Total DLP DATA REPOSITORY: All CT scans at this facility are submitted to the National Radiology Data Registry (NRDR) Dose Index Registry (DIR) with the [employer] (ACR). RADIATION OPTIMIZATION: All CT scans at this facility use at least one of these dose optimization te chniques: automated exposure control; mA and/or kV adjustment per patient size (includes targeted exa ms where dose is matched to clinical indication); or iterative reconstruction.
--- NOTE | 2021-07-15 16:45 | DI.CT_ITS ---
Exam(s) CT ABDOMEN PELVIS W EXAM: CT ABDOMEN PELVIS W CLINICAL HISTORY: ams. TECHNIQUE: Imaging Protocol: Axial computed tomography images with coronal and sagittal reformatted images were created and reviewed CONTRAST MATERIAL: Intravenous: Omnipaque 350 Contrast volume:100 ml Oral: no COMPARISON: No exams were available for comparison FINDINGS: Exam is limited by patient motion. ABDOMEN: Lung Bases: Ascending aorta ectatic at 4.5 cm. Pulmonary arteries are prominent. Lungs not well eloy luated due to respiratory motion. Liver: Normal density. Small cyst. Gallbladder and biliary tract: No radiodense calculus or dilation. Not well evaluated due to motion. Pancreas: Normal density, no abnormal calcifications or inflammatory process. Spleen: Normal. Kidneys: Moderate right hydronephrosis. Ureter is diet dilated down to the ureterovesical junction w here there is a 5 millimeter obstructing stone. There is delay of the right nephrogram and mild adrien nephric stranding. No masses seen. Adrenal glands: No masses seen. Abdominal Aorta: Abdominal portion non-dilated. PELVIS: Bladder: Olmstead catheter present in a collapsed bladder. No gross wall thickening. No calculi.No foca l mass. Bowel: No obstruction or bowel wall thickening. Appendix normal. Peritoneal cavity: No ascites, collection or mesenteric inflammatory response. Bones: Scoliosis and degenerative changes. Reproductive organs: Calcified fibroids. Lymph nodes: Unremarkable. Impression: Moderate right hydronephrosis secondary to 5 millimeter stone at the ureterovesical junction. RADIATION DOSE DELIVERED: 1,824.43mGy.cm Total DLP DATA REPOSITORY: All CT scans at this facility are submitted to the National Radiology Data Registry (NRDR) Dose Index Registry (DIR) with the [employer] (ACR). RADIATION OPTIMIZATION: All CT scans at this facility use at least one of these dose optimization te chniques: automated exposure control; mA and/or kV adjustment per patient size (includes targeted exa ms where dose is matched to clinical indication); or iterative reconstruction.
[2021-07-15 17:00] LABS: Source Nasal/Nares
[2021-07-15 17:05] LABS: Lactate 2.1 mmol/L (0.6-1.4)
[2021-07-15 17:13] LABS: Magnesium 1.7 mg/dL (1.8-2.4)
--- NOTE | 2021-07-15 17:15 | RT.EKG_ITS ---
APPROVED REPORT Exam: Resting ECG Reason for Exam: a fib Patient Location: E HR:131 bpm ECG Measurements Heart Rate 131 AXIS [place] [id number] P [id number] QRSd 95 QRS -20 QT 262 T 136 QTc 387 Conclusion Atrial fibrillation. Inferior infarct, old...Q >35mS, II III aVF Anterolateral Q >35mS, T neg, V2-V6,I,aVL
[2021-07-15 17:24] LABS: Troponin I < 50 ng/L (<or=60)
[2021-07-15 17:46] LABS: COVID-19 PCR Negative (Negative)
[2021-07-15] MEDS: Normal Saline Flush 10 ML SYR IVP (17:53)
[2021-07-15] MEDS: Omnipaque 350 MG/ML 100 ML BTL IJ (17:54)
[2021-07-15] MEDS: dilTIAZem 25 MG/5 ML VIAL 15 MG IVP (18:18)
[2021-07-15] MEDS: Normal Saline 500 ML IV (18:19)
--- NOTE | 2021-07-15 18:30 | DI.VRAD_ITS ---
PROCEDURE INFORMATION: Exam: XR Chest Exam date and time: 07/15/2021 16:51 Age: 75 years old Clinical indication: Other: AMS TECHNIQUE: Imaging protocol: XR of the chest. Views: 1 view. COMPARISON: CR XR CHEST 2V PA LATERAL 03/08/2021 12:58 FINDINGS: Lungs: Low lung volumes. No airspace consolidation. No significant interstitial disease for the degree of inflation. Pleural spaces: No pleural effusion. No pneumothorax. Heart/Mediastinum: No significant cardiomegaly for position and projection. Rounded 25 mm density at the right hilum, probably a benign right pulmonary artery shadow given rotation. Consider follow-up non rotated view when clinically appropriate. Vasculature: Atherosclerosis. Bones/joints: No acute fracture. IMPRESSION: Negative portable chest. Additional findings as above. Dictated and Authenticated by: Catalina Maldonado MD. Ordering:MAYUR Alcocer MD
[2021-07-15] MEDS: cefTRIAXone 2 GM/50 ML BAG IVPB (18:35)
--- NOTE | 2021-07-15 18:35 | DI.VRAD_ITS ---
PROCEDURE INFORMATION: Exam: CT Abdomen And Pelvis With Contrast Exam date and time: 07/15/2021 16:55 Age: 75 years old Clinical indication: Other: AMS TECHNIQUE: Imaging protocol: Computed tomography of the abdomen and pelvis with contrast. Radiation optimization: All CT scans at this facility use at least one of these dose optimization techniques: automated exposure control; mA and/or kV adjustment per patient size (includes targeted exams where dose is matched to clinical indication); or iterative reconstruction. Contrast material: OMNIPAQUE 350; Contrast volume: 100 ml; Contrast route: INTRAVENOUS (IV); COMPARISON: CR XR PORTABLE CHEST AP 07/15/2021 17:42 FINDINGS: Lungs: Noncalcified nodular nodules partially seen in the right upper lobe. Follow-up as per institutional protocol. Minimal dependent subsegmental atelectasis. Liver: Benign-appearing hepatic cyst. No masses accounting for motion. Gallbladder and bile ducts: A partially contracted gallbladder is likely present. Motion artifact. Pancreas: Motion at the pancreas without gross lesions. Spleen: No splenomegaly or focal lesions. Adrenal glands: No mass. Kidneys and ureters: 5 mm distal right ureteral calculus causing moderate right hydronephrosis. Delayed nephrogram. Mild surrounding edema. No renal masses accounting for motion. No left hydronephrosis. Stomach and bowel: No acute pathology in small bowel or colon allowing for motion. Appendix: No evidence of appendicitis. Intraperitoneal space: No free air. No significant fluid collection. Vasculature: Mild ascending aortic aneurysm. Lymph nodes: No significantly enlarged lymph nodes. Urinary bladder: Olmstead catheter in a decompressed urinary bladder. Reproductive: Benign-appearing calcified fibroids in the uterus. Bones/joints: Dextroscoliosis, degenerative changes in hips and spine. Chronic rib deformities. Soft tissues: No suspicious lesions. IMPRESSION: 1. 5 mm distal right ureteral calculus causing moderate right hydronephrosis. 2. Olmstead catheter in a decompressed urinary bladder. 3. Incidental findings as described. Dictated and Authenticated by: Catalina Maldonado MD. Ordering:MAYUR Alcocer MD
[2021-07-15 18:36] LABS: Bilirubin Negative (Negative); Blood Large (Negative); Clarity Cloudy (Clear); Glucose Negative (Negative); Ketones Negative (Negative); Leukocyte Esterase Trace (Negative); Nitrite Negative (Negative); Specific Gravity 1.015 (1.005-1.025); Urobilinogen 0.2 EU/dL (Up TO 0.2)
--- NOTE | 2021-07-15 18:39 | DI.VRAD_ITS ---
PROCEDURE INFORMATION: Exam: CT Head Without Contrast Exam date and time: 07/15/2021 4:51 PM Age: 75 years old Clinical indication: Patient HX: AMS, PT unable to stay still, best images possible TECHNIQUE: Imaging protocol: Computed tomography of the head without contrast. Radiation optimization: All CT scans at this facility use at least one of these dose optimization techniques: automated exposure control; mA and/or kV adjustment per patient size (includes targeted exams where dose is matched to clinical indication); or iterative reconstruction. COMPARISON: CT HEAD CERVICAL SPINE WO 01/28/2020 5:01 AM FINDINGS: Brain: No acute intracranial hemorrhage, mass-effect, midline shift, or extra-axial collection is seen. There is patchy white matter hypoattenuation, nonspecific but commonly seen as a chronic sequela of small vessel ischemic disease. The sorensen white matter differentiation appears preserved. There is symmetric parenchymal volume loss. Cerebral ventricles: The ventricular system and basilar cisterns appear appropriate in size and configuration. Paranasal sinuses: There is thick heterogeneous partially calcified mucoperiosteal thickening in the right maxillary sinus, probably from chronic sinusitis or old trauma. There is minimal mucoperiosteal thickening in the left maxillary sinus. Mastoid air cells: The mastoid air cells appear well-aerated. Auditory system: The middle ear cavities appear clear. Soft tissue density material within the right external auditory canal probably represents cerumen; however, direct inspection is recommended for definitive evaluation. Orbital cavity: The globes and intraorbital structures appear grossly intact. Vasculature: There is atherosclerotic calcification within the intracranial portion of the internal carotid arteries bilaterally. Bones/joints: The bony calvarium appears intact. No depressed skull fracture is seen. There is hyperostosis frontalis interna. Soft tissues: No significant scalp lesion is seen. IMPRESSION: 1. No acute intracranial abnormality seen. 2. Presumed chronic microvascular ischemic change. 3. Symmetric parenchymal volume loss. 4. Paranasal sinus disease, as above. Dictated and Authenticated by: Pawan Mast MD. Ordering:MAYUR Alcocer MD
[2021-07-15 18:44] LABS: Bacteria Many HPF (Negative); C & S Indicated? Yes; Casts 3-5 Hyaline LPF (Negative); Crystals Negative HPF (Negative); Epithelial Cells Few HPF (Negative); Mucus Trace (Negative); RBC 20-50 HPF (0-2)
--- NOTE | 2021-07-15 19:00 | ED.GENADUL_ITS ---
Discharge Plan Disposition Patient Disposition: [facility] Condition: Critical Discharge Details Chief Complaint: AMS/LOC Clinical Impression: Atrial flutter, Diabetes mellitus, Elevated WBC count, Ureterolithiasis, Urinary tract infection Primary Care Provider: Tanner Zhu ED Provider: Carlyn Mercedes Home Meds and New Rx's Prescriptions: No Action donepezil [Aricept] 5 mg Tablet 5 mg PO DAILY RF: 0 furosemide 20 mg Tablet 20 mg PO DAILY RF: 0 Levemir Flexpen 100 unit/mL (3 mL) Insulin Pen 40 unit SUBCUT HS RF: 0 insulin aspart U-100 [Novolog U-100 Insulin aspart] 100 unit/mL solution 10 unit subcut AC RF: 0 Victoza 3-Antony 0.6 mg/0.1 mL (18 mg/3 mL) pen injector 1.2 mg SUBCUT QAM RF: 0 risperidone 0.5 mg tablet 1 mg PO BID RF: 0 venlafaxine 75 mg capsule,extended release 24hr 75 mg PO DAILY RF: 0 atorvastatin 40 mg Tablet 40 mg PO DAILY RF: 0 acetaminophen 325 mg Tablet 650 mg PO Q4H PRN PRNRF: 0 naltrexone 50 mg Tablet 50 mg PO DAILY RF: 0 triamcinolone acetonide 0.1 % Cream 1 applic TOPICAL BID RF: 0 magnesium hydroxide [Milk of Magnesia] 400 mg/5 mL Suspension 30 ml PO HS PRNRF: 0 bisacodyl [Dulcolax (bisacodyl)] 10 mg Suppository 10 mg [place] DAILY PRNRF: 0 metformin 1,000 mg Tablet 750 mg PO DAILY RF: 0 Fleet Enema 19-7 gram/118 mL Enema 118 ml [place] DAILY PRNRF: 0 nystatin 100,000 unit/gram Powder 1 applic TOPICAL BID RF: 0 losartan 100 mg Tablet 100 mg PO DAILY RF: 0 vitamin B complex Tablet 1 tab PO DAILY RF: 0 albuterol sulfate [Ventolin HFA] 90 mcg/actuation Hfa Aerosol Inhaler 2 puff INHALATION Q4H PRN PRNRF: 0 cholecalciferol (vitamin D3) [Vitamin D3] 50 mcg (2,000 unit) Tablet 2,000 unit PO DAILY RF: 0 Xarelto 20 mg Tablet 20 mg PO DAILY RF: 0 levothyroxine [Synthroid] 200 mcg tablet 112 mcg PO DAILY RF: 0 melatonin 3 mg Tablet 6 mg PO QHS RF: 0 methenamine hippurate 1 gram Tablet 1 g PO DAILY RF: 0 ipratropium-albuterol 0.5 mg-3 mg(2.5 mg base)/3 mL Solution For Nebulization 3 ml INHALATION PRN PRNRF: 0 Discharge Data Discharge Date/Time-TO BE ENTERED AT DEPARTURE: 07/15/21 20:45 Medical Decision Making Patient presents acutely ill, alteration in mental status per group home, leukocytosis prior to arrival Here she is responsive to voice She was notably tachycardic, in atrial flutter on EKG, and maintained stable BP throughout encounter Given 15mg diltiazem needed bolus given illness, no change in weight, therefore diltiazem infusion was ordered, at 15 mg/h, she is in the 120s Mental status has not changed Magnesium bolus 1 G initiated, mag of 1.7 Attempt make to contact patient family, I called both Loco and her listed ex- , unable to contact We did obtain call for him, this will be transferred to [facility] Patient was accepted in transport from [facility], Dr. Negron has accepted the patient to the emergency room Patient will likely need stent placement secondary to urinary tract infection, ureterolithiasis which is visualized on vRad interpretation in my review of patient's CT scan in the right UVJ CT head does not show acute abnormality per V rad interpretation my review CX-ray without acute abnormality, Covid swab negative denis Adan'dominic dpoahere called back in approximately [phone] and I reviewed patient's guarded medical status and patient status of being in route to [facility] for emergent intervention He confirmed that patient is DNR/DNI without any extreme measures given her dementia and comorbidities He was comfortable with this plan for stent placement and IV antibiotics with admission and will call [facility] and likely drive down immediately given his mother's cardiac status Repeat blood glucose 180 prior to EMS transport HPI General Mode of arrival: ambulatory . Date/Time Provider Initiated Documentation: 07/15/21 16:29 . Limitations to Documentation: no limitations . Information obtained by: patient . HPI Narrative: This 75-year-old female with history of peripheral vascular disease, DVT, hypothyroidism, hypertension, hyperlipidemia, bipolar disorder, dementia presents with report of alteration in mental status with syncopal event around lunchtime. She was sent to the emergency room for additional assessment. She is at her baseline mentation prior to the episode. She was reportedly eating when the event occurred. Patient is unable to give me any history. There have been no reported falls or injuries from staff. Of note, patient did have blood work today and did have marked leukocytosis per group home staff. Per EMS, patient had oxygen saturation of 89% was placed on 1 L nasal cannula, this is not her baseline reportedly. Denies any vomiting or diarrhea. Blood sugar was 155 in route reportedly. She did receive her insulin prior to lunch per group home staff. Related Data Home Medications Medication Instructions Recorded Confirmed Fleet Enema 118 ml [place] DAILY PRN 01/28/20 07/09/21 Xarelto 20 mg PO DAILY 01/28/20 07/15/21 acetaminophen 650 mg PO Q4H PRN PRN 01/28/20 07/15/21 albuterol sulfate [Ventolin HFA] 2 puff INHALATION Q4H PRN PRN 01/28/20 07/09/21 atorvastatin 40 mg PO DAILY 01/28/20 07/15/21 bisacodyl [Dulcolax (bisacodyl)] 10 mg [place] DAILY PRN 01/28/20 07/15/21 cholecalciferol (vitamin D3) 2,000 unit PO DAILY 01/28/20 07/15/21 [Vitamin D3] losartan 100 mg PO DAILY 01/28/20 07/15/21 magnesium hydroxide [Milk of 30 ml PO HS PRN 01/28/20 07/09/21 Magnesia] metformin 750 mg PO DAILY 01/28/20 02/21/21 naltrexone 50 mg PO DAILY 01/28/20 02/21/21 nystatin 1 applic TOPICAL BID 01/28/20 07/09/21 triamcinolone acetonide 1 applic TOPICAL BID 01/28/20 07/09/21 vitamin B complex 1 tab PO DAILY 01/28/20 07/15/21 donepezil [Aricept] 5 mg PO DAILY 02/21/21 07/15/21 furosemide 20 mg PO DAILY 02/21/21 07/15/21 insulin detemir U-100 [Levemir 40 unit SUBCUT HS 02/21/21 07/15/21 Flexpen] insulin aspart U-100 100 unit/mL 10 unit SUBCUT AC ml 07/09/21 07/15/21 subcutaneous solution levothyroxine 200 mcg tablet 112 mcg PO DAILY tab 07/09/21 07/15/21 liraglutide 0.6 mg/0.1 mL (18 mg/3 1.2 mg SUBCUT QAM ml 07/09/21 07/15/21 mL) subcutaneous pen injector risperidone 0.5 mg tablet 1 mg PO BID tab 07/09/21 07/09/21 venlafaxine 75 mg capsule,extended 75 mg PO DAILY 07/09/21 07/09/21 release 24 hr ipratropium-albuterol 3 ml INHALATION PRN PRN 07/15/21 07/15/21 melatonin 6 mg PO QHS 07/15/21 07/15/21 methenamine hippurate 1 g PO DAILY 07/15/21 07/15/21 Allergies Allergy/AdvReac Type Severity Reaction Status Date / Time MACHELLE Inhibitors Allergy Unverified 07/15/21 16:48 levothyroxine Allergy Unverified 07/15/21 16:48 lisinopril Allergy Unverified 07/15/21 16:48 General Stated Complaint: AMS/LOC OLIVER: 2 Review of Systems Unobtainable due to mental condition PFSH All Active Problems (Updated 07/15/21 @ 22:14 by HANG Gomez) Atrial flutter (Acute) Ureterolithiasis (Acute) Urinary tract infection (Acute) Hematuria (Acute) Urinary incontinence (Acute) Pedal edema (Acute) Elevated WBC count (Acute) Elevated C-reactive protein (Acute) Dyspnea due to congestive heart failure (Acute) PVD (peripheral vascular disease) (Chronic) DVT (deep venous thrombosis) (Chronic) Hypothyroid (Chronic) HTN (hypertension) (Chronic) Hypercholesterolemia (Chronic) Diabetes mellitus (Chronic) CHF (congestive heart failure) (Chronic) per [facility] does not see cardiology Bipolar disorder (Chronic) Asthma (Chronic) Social History Smoking/Tobacco Use Status: Never Smoking risk assessment performed?: Yes Alcohol Intake: former Drug use: Never Do you feel safe in your relationship?: Yes Additional Social history: [facility] resident Exam Const General: ill appearing HENMT Head: normal to inspection Other: Dry mucous membranes Uvula midline, no food bolus noted, maintaining airway Eyes Pupils: PERRL Neck Other: No stridor Resp Effort & Inspection: normal respiratory effort Cardio Rate: tachycardic Rhythm: abnormal rhythm GI Inspection: normal to inspection Skin General skin exam: no rashes or lesions noted Neuro Other: Responsive to voice, oriented x1 Extrem Other: Distal pulses intact 1+ edema Course Vital Signs Vital signs: Vital Signs Temperature 36.0 C L 07/15/21 16:28 Pulse 108 H 07/15/21 16:28 Respiratory Rate 20 07/15/21 16:28 Blood Pressure 149/62 H 07/15/21 16:28 Pulse Oximetry 98 07/15/21 16:28 Temperature 36.1 C L 07/15/21 18:30 Temperature Source Tympanic 07/15/21 18:30 Pulse 120 H 07/15/21 18:30 Respiratory Rate 18 07/15/21 18:30 Respiratory Effort 07/15/21 18:55 Blood Pressure 174/76 H 07/15/21 18:30 Blood Pressure Position Supine 07/15/21 16:28 Pulse Oximetry 96 07/15/21 18:30 Oxygen Delivery Method Nasal Cannula 07/15/21 18:30 Oxygen Flow Rate 2 07/15/21 18:30 Lab/Test Results Lab/Test Results: 07/15/21 18:23 Urine - Reflex from Ua Urine Culture - Pending 07/15/21 16:59 Blood Blood Culture - Pending 07/15/21 16:44 Blood Blood Culture - Pending Laboratory Tests Range/Units 07/15/21 07/15/21 07/15/21 16:57 16:59 16:59 VBG Lactate (0.6-1.4) mmol/L 2.1 H Magnesium (1.8-2.4) mg/dL 1.7 L Troponin I (<or=60) ng/L Urine Color (Yellow) Urine Clarity (Clear) Urine pH (5-8) Ur Specific [place] (1.005-1.025) Urine Protein (Negative) mg/dL Urine Ketones (Negative) mg/dL Urine Blood (Negative) Urine Nitrite (Negative) Urine Bilirubin (Negative) Urine Urobilinogen (Up TO 0.2) EU/dL Ur Leukocyte Esterase (Negative) Urine RBC (0-2) HPF Urine WBC (0-5) HPF Ur Epithelial Cells (Negative) HPF Urine Crystals (Negative) HPF Urine Bacteria (Negative) HPF Urine Casts (Negative) LPF Urine Mucus (Negative) Ur Culture Indicated? Urine Glucose (Negative) mg/dL COVID-19 Source Nasal/Nares SARS-CoV-2 (PCR) (Negative) Negative Range/Units 07/15/21 07/15/21 16:59 18:23 VBG Lactate (0.6-1.4) mmol/L Magnesium (1.8-2.4) mg/dL Troponin I (<or=60) ng/L < 50 Urine Color (Yellow) Yellow Urine Clarity (Clear) Cloudy Urine pH (5-8) 7.0 Ur Specific [place] (1.005-1.025) 1.015 Urine Protein (Negative) mg/dL 100 H Urine Ketones (Negative) mg/dL Negative Urine Blood (Negative) Large H Urine Nitrite (Negative) Negative Urine Bilirubin (Negative) Negative Urine Urobilinogen (Up TO 0.2) EU/dL 0.2 Ur Leukocyte Esterase (Negative) Trace H Urine RBC (0-2) HPF 20-50 H Urine WBC (0-5) HPF 10-20 H Ur Epithelial Cells (Negative) HPF Few Urine Crystals (Negative) HPF Negative Urine Bacteria (Negative) HPF Many Urine Casts (Negative) LPF 3-5 Hyaline Urine Mucus (Negative) Trace Ur Culture Indicated? Yes Urine Glucose (Negative) mg/dL Negative COVID-19 Source SARS-CoV-2 (PCR) (Negative) Critical Care Time Critical Care Time Critical Care Time: Yes Total Critical Care Time: 75 Attestation: Telemetry monitoring, IV fluid resuscitation, IV antibiotic, diagnostic labs, diagnostic CT imaging, IV antiarrhythmic bolus and infusion, repeat EKG, specialist consultation, transfer to tertiary care facility
[2021-07-15 19:05] LABS: HCT 35.4 % (36.0-46.0); HGB 11.7 g/dL (11.2-15.7); MCH 29.9 pg (27.0-33.0); MCHC 33.1 % (32.0-36.0); MCV 90.5 fL (80-95); MPV 9.9 fL (8.0-11.0); Nucleated RBC 0 %; Platelet Count 358 10^3/uL (130-400); RBC 3.91 10^6/uL (3.93-5.22); RDW 12.6 % (11.7-14.6); RDW-SD 41.7 fL
[2021-07-15 19:15] LABS: ALT 36 U/L (14-59); AST 31 U/L (15-37); Albumin 2.9 g/dL (3.4-5.0); Alkaline Phosphatase 89 U/L (46-116); Anion Gap 11.2 mmol/L (3-11); BUN 24 mg/dL (7-18); Bilirubin, Total 0.5 mg/dL (0.2-1.0); CO2 23.8 mmol/L (21.0-32.0); CREATININE 1.5 mg/dL (0.55-1.02); Calcium 9.1 mg/dL (8.5-10.1); Chloride 94 mmol/L (98-107); Estimated GFR 33.76 (mL/min/1.73m2); Glucose 153 mg/dL (74-106); Sodium 129 mmol/L (136-145)
[2021-07-15] MEDS: dilTIAZem 125 MG in Normal Saline 100 ML 10 MG IV (19:18)
[2021-07-15 19:27] LABS: Absolute Lymphocyte Count 0.59 10^3/uL (1.2-3.4); Absolute Monocyte Count 1.19 10^3/uL (0.1-0.8); Absolute Neutrophil Count 27.92 10^3/uL (1.2-6.7); Bands % 13; Diff Comment Manual Differential; RBC Morphology Normal
[2021-07-15 20:24] LABS: TSH (W/Ref FT4) 5.81 uIU/mL (0.36-3.74)
[2021-07-15] MEDS: MAGNESIUM SULFATE 1 GM/100 ML BAG IVPB (20:25)
[2021-07-15 20:43] LABS: FREE T4 0.91 ng/dL (0.76-1.46)
== END 2021-07-15 20:45 ==
PROVIDERS: Emergency Provider Physician Assistant; PCP Nurse Practitioner Acute Care
DX: I48.92 Unspecified atrial flutter (principal); E11.9 Type 2 diabetes mellitus without complications; D72.829 Elevated white blood cell count, unspecified; N39.0 Urinary tract infection, site not specified; B96.89 Other specified bacterial agents as the cause of diseases classified elsewhere; N20.1 Calculus of ureter; Z20.822 Contact with and (suspected) exposure to COVID-19
CPT/HCPCS: 36415; 36416; 51701; 80053; 82962; 87040; 87077; 87635; 93005; 96365; 96366; 96367; 96376; 99291; 99292; 70450; 71045; 74177; 81003; 81015; 83605; 83735; 84439; 84443; 84484; 85025; 87086; 87186; 93010; J3475; J3490